=== PATIENT | male | born 1975 | race Caucasian/White ===

== ENCOUNTER 2019-08-15 01:02 | Emergency (ER) | payer BC ==
[2019-08-15 01:13] VITALS: BP 156/100
[2019-08-15] MEDS ORDERED: NORVASC10 MG PO (01:14)
[2019-08-15] MEDS ORDERED: AMBIEN10 MG PO (01:15)
[2019-08-15] MEDS ORDERED: REYATAZ150 MG PO (01:16)
[2019-08-15] MEDS ORDERED: ADDERALL XR 3030 MG PO (01:16)
== END 2019-08-15 01:10 | disposition home or self-care (01) ==
LOC: D.ER 01:02
DX: M54.5 Low back pain (principal); G89.29 Other chronic pain